=== PATIENT | female | born 1990 | race Caucasian/White ===

== ENCOUNTER 2017-06-24 16:25 | Emergency (ER) | payer OTHER ==
[2017-06-24 16:36] VITALS: BP 129/88; PULSE 87; RESP 20; TEMP 98.6; O2SAT 99
--- NOTE | 2017-06-24 16:42 | EDPHY ---
HPI/HX/ROS/PE/MDM Narrative: CHIEF COMPLAINT: Head injury HPI: The patient is a 26 y/o female complaining of a head injury after falling and hitting the back of her head on turf during soccer practice, 40 minutes ago. She does not believe she lost consciousness. However, she did have difficulty standing up and thinking initially. She did have a [place] in the middle of her vision for 35 minutes. Denies history of previous head injury, vomiting, paresthesias or other pertinent symptoms. REVIEW OF SYSTEMS: Aside from elements discussed in the HPI, a comprehensive 10-point review of systems was reviewed and is negative. PMH: Denies SOCIAL HISTORY: Mother and boyfriend at bedside, lives in [place] PHYSICAL EXAM: General:Patient is alert, in no acute distress. ENT:Eyes are normal to inspection. ENT inspection normal. Neck: Normal inspection. Full range of motion. Respiratory:No respiratory distress. Breath sounds normal bilaterally. Cardiovascular: Regular rate and rhythm. Strong peripheral pulses. Normal cap refill. Abdomen:The abdomen is nontender to palpation. There are no peritoneal signs. There are normal bowel sounds. Back: Normal to inspection. No tenderness to palpation. Skin: Normal color. No rash. Warm and dry. Extremities: Normal appearance. Full range of motion. Neuro: Oriented x3. Normal motor function. Normal sensory function. No pronator drift. Normal [id number]. ED Course: 1653: I have discussed the symptoms that she can expect due to her concussion. Return precautions provided; patient and her family are comfortable with this plan. MDM: This is a young healthy female with signs and symptoms of concussion. She has no red flags to suggest intracranial injury, specifically, she did not lose consciousness, is not on anticoagulants, does not have a bleeding disorder, has a normal neuro exam and is now essentially asymptomatic. We discussed option of CTH, but patient agrees that this is likely unnecessary. Patient understands that it is impossible to 100% rule out condition without further testing. We discussed strict return precautions. General Time Seen by Provider: 06/24/17 16:41 Initial Vital Signs: Initial Vital Signs Temperature (C) 37.0 C 06/24/17 16:33 Heart Rate 87 06/24/17 16:33 Respiratory Rate 20 06/24/17 16:33 Blood Pressure 129/88 H 06/24/17 16:33 O2 Sat (%) 99 06/24/17 16:33 O2 Delivery Mode Room Air Allergies/Adverse Reactions: No Known Allergies Allergy (Verified 06/24/17 16:31) Home Medications: Medication Instructions Recorded Control Pills 03/03/11 CITALOPRAM HYDROBROMIDE [Celexa] 20 mg PO DAILY 03/03/11 Lisdexamfetamine Dimesylate 20 mg PO PRN PRN 03/03/11 [Vyvanse] Departure - Departure Disposition: Home, Routine, Self-Care Clinical Impression: Concussion Qualifiers: Encounter type: initial encounter Loss of consciousness presence/duration: without LOC Qualified Code(s): S06.0X0A - Concussion without loss of consciousness, initial encounter Condition: Good Instructions: Concussion (ED) Additional Instructions: 1. Use Tylenol or ibuprofen as needed for headache. 2. Brain rest while symptoms are present. Your symptoms could last days to weeks. Avoid screen time including TV, computers, phones, and video games. It is important to avoid any activities that could put you at risk for another head injury while your symptoms are present. No bicycling, contact sports, skiing, or other risky activities. Expect a follow up call from us in 10-14 days to discuss any ongoing concussion symptoms. They will refer you to a head injury specialist if necessary. 3. Follow up with your primary care provider in the next 3-4 days. 4. Return to the Emergency Department if you develop a severe headache, numbness or weakness in your extremities, difficulty speaking, difficulty walking, uncontrollable vomiting, or other worsening of condition. Referrals: SARAH PASCAL [Primary Care Provider] - As per Instructions Report Scribed for: El Tsang Report Scribed by: Mariaelena Ferro Date of Report: 06/24/17 Time of Report: 16:42 Physician Review and Approval Statement: Portions of this note were transcribed by an ED scribe. I personally performed the history, physical exam, and medical decision making; and confirm the accuracy of the information in the transcribed note.
== END 2017-06-24 17:07 | disposition home or self-care (01) ==
DX: S06.0X0A Concussion without loss of consciousness, initial encounter (principal); W18.09XA Striking against other object with subsequent fall, initial encounter; Y99.8 Other external cause status; Y93.66 Activity, soccer